=== PATIENT | male | born 1935 | race Caucasian/White ===

== ENCOUNTER 2017-03-16 05:58 | Observation (INO) | payer MEDICARE, BC ==
--- NOTE | ~2017-03-16 | CT71 ---
[facility] A Service [facility] RADIOLOGY TEXT RESULTS PATIENT: JESSIE CORRIGAN LOCATION: [facility] 552- : 37 UNIT #: [id number] AGE: [address]: Bennett Lynch MD SEX: M ORDER DR: [id number] [facility] [address]. [place], [place] [address] [id number] MR#: [id number] Acc #: [id number] NAME: JESSIE CORRIGAN : 1935 SEX: M STUDY DATE/TIME: 03/16/2017 7:36 UNIT: WALTER ROOM: STUDY DESCRIPTION: CT Head Wo Contrast Attending Physician: Meliton Rodrigues M.D. Ordering Physician: Meliton Rodrigues M.D. Primary Care Physician: Bennett Lynch M.D. MEDICAL IMAGING REPORT This report is preliminary unless electronic signature is present EXAM Noncontrast CT head 03/16/2017 HISTORY Woke up with acute mental status changes. Confusion today. Previous history of stroke. COMPARISON Noncontrast CT head 12/16/2013. PROCEDURE This CT examination was performed with one or more of the following radiation dose reduction techniques: automatic exposure control, adjustment of mA and/or kV according to patient size, and iterative reconstruction. FINDINGS Study is degraded by patient motion. Allowing for this limitation, no gross acute intracranial hemorrhage, mass lesion, mass effect or midline shift is seen. Focal encephalomalacic change is demonstrated within the right frontal lobe, consistent with site of remote vascular insult. Ventricular configuration appears within normal limits. Major paranasal sinuses and mastoid air cells are clear. No displaced calvarial fracture is identified. IMPRESSION 1. No acute intracranial findings. 2. Focal right frontal encephalomalacia consistent with remote vascular insult. Dictated by... Tahmina Larry M.D. [facility] A Service [facility] RADIOLOGY TEXT RESULTS PATIENT: JESSIE CORRIGAN LOCATION: [facility] 552- : 37 UNIT #: [id number] AGE: [address]: Bennett Lynch MD SEX: M ORDER DR: THIS IS AN ELECTRONICALLY VERIFIED REPORT Tahmina Larry M.D. at 03/19/2017 8:31 AM NOAH/bridgett TD: 03/16/2017 09:03 JOB #: [id number] MEDICAL IMAGING REPORT Page 1 of 1 COPY
--- NOTE | ~2017-03-16 | DS ---
Unit #: [id number] #: [id number] Patient: JESSIE CORRIGAN [id number] [address] [place], [place] [address] [id number] I MR#: [id number] NAME: JESSIE CORRIGAN. ROOM: 55 Age: 81 Sex: M Admission Date: 03/16/2017 : 1935 Discharge Date: 03/18/2017 Attending Physician: Bennett Lynch M.D. Primary Care Physician: Bennett Lynch M.D. DISCHARGE SUMMARY PRINCIPAL DISCHARGE DIAGNOSES 1. Acute mental status changes secondary to hypoglycemia. 2. Type 2 diabetes mellitus. 3. 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 4. Coronary artery disease. 5. Peripheral arterial disease. 6. Hypertension. 7. Hyperlipidemia. 8. Benign prostatic hypertrophy. PROCEDURES None. CONSULTANTS Dr. Marroquin from neurology. REASON FOR HOSPITALIZATION The patient is a 81-year-old white male with history of coronary artery disease, peripheral arterial disease, hypertension, hyperlipidemia, type 2 diabetes mellitus, BPH, old CVA. Presented on the morning of admission with acute mental status changes, agitated, slurred speech, confusion, disorientation. He had apparently woken up earlier during the night in a drenching sweat at about 4 a.m. He checked his sugar at that time and stated it was in the 90s, so he went back to sleep, but when he awoke a few hours later, he was confused and agitated. EMS was summoned. His blood sugar apparently at first was okay but then soon dropped in the ER to 35, treated with an amp of D50. His workup there was, otherwise, essentially unremarkable. CT scan was performed and showed no acute disease but an old right frontal encephalomalacia consistent with prior infarct, and the patient was admitted. HOSPITAL COURSE The patient was admitted to a telemetry bed. He was seen in neurology consultation. Additional labs were sent. Accu-Cheks were obtained. He was placed on IV fluids with dextrose. Diabetic medications were held. His ammonia level was 38. PT and PTT were within normal limits. CBC showed a white count of 13.2 but was otherwise normal. Urinalysis had 100 glucose and 1+ blood but was otherwise negative. Urine drug screen was negative. Tylenol/acetaminophen and alcohol were negative. MRI of the brain showed some motion artifact. There was some nonspecific small vessel disease. Two lesions were noted within the left parotid gland, one measuring 9 mm and one more consistent with a cyst. An EEG was performed. There is no official report, but the handwritten report by neurologist states tremor and motion artifact. The patient's blood sugars have been over 151 for the Unit #: [id number] #: [id number] Patient: JESSIE CORRIGAN past 24 hours, but he is still on dextrose. This is being discontinued. He will have breakfast and lunch, and if his blood sugar stays okay, he will be discharged home. His room air O2 sat is currently 98%. Other vital signs are within normal range. DISCHARGE INSTRUCTIONS He is to have an office visit in the next week. He is to check his blood sugars a.c. and h.s. and call if less than 70 or over 250. He is to call his blood sugars to the office in 48 hours. DISCHARGE DIET He is on a healthy heart, constant carb diet. CURRENT MEDS 1. Flomax 0.4 mg daily. 2. Magnesium oxide 400 mg b.i.d. 3. Gabapentin 300 mg t.i.d. 4. Meclizine 25 mg p.r.n. 5. Lipitor 80 mg daily. 6. Zetia 10 mg daily. 7. Coreg 6.25 mg b.i.d. 8. Lasix 20 mg b.i.d. 9. Lisinopril 20 mg daily. 10. Plavix 75 mg daily. 11. His glipizide will be discontinued. 12. NovoLog is discontinued. 13. Toujeo is decreased from 120 units subcu q.h.s. to 100 units. 14. His Januvia is being discontinued temporarily, as well. Dictated by... Bennett Lynch M.D. BENEDICTO/yasir TD: 03/19/2017 08:12 JOB #: [id number] DISCHARGE SUMMARY Page 1 of 1 X Bennett Lynch MD X DISCHARGE SUMMARY
--- NOTE | ~2017-03-16 | HP ---
Unit #: [id number] #: [id number] Patient: JESSIE CORRIGAN [id number] [address] [place], [place] [address] [id number] E MR#: [id number] NAME: JESSIE CORRIGAN ROOM: Age: 81 Sex: M Admission Date: 03/16/2017 : 1935 Attending Physician: Meliton Rodrigues M.D. Primary Care Physician: Bennett Lynch M.D. HISTORY AND PHYSICAL HISTORY OF PRESENT ILLNESS The patient is a 81-year-old white male with history of coronary artery disease, peripheral arterial disease, hypertension, hyperlipidemia, type 2 diabetes mellitus, BPH, old CVA, occasional alcohol use, presents this morning with acute mental status changes, agitated, slurred speech, confusion, disorientation. Apparently, he awoke early this morning about 4 a.m. drenched in sweat. He knows to check his sugar if this happens. He checked it and states that it was in the 90s so he went back to bed but then when he awoke at 7 or 8, he was confused per his , agitated, tried to call his sister, had slurred speech, EMS was summoned. When they arrived, his blood sugar was in the 80s or 90s. Soon after he arrived here in the emergency room, it dropped to 33. He was given an amp of D50. It went up to 119, then fell back to 66, at which time he was fed and currently his last blood sugar is 87 and he is awake, alert, and oriented x3. He has already been seen by Neurology. His workup otherwise is fairly unremarkable but will be stated below. He has had the MRI but we do not have the results yet but he has no focal neurologic symptoms. His and daughter are at the bedside during the history and physical examination. He needs to be admitted overnight for observation for the acute mental status change. PAST MEDICAL HISTORY 1. Hypertension. 2. Type 2 diabetes mellitus. 3. Hyperlipidemia. 4. Smoker. 5. Coronary artery disease. 6. Peripheral arterial disease. 7. BPH. 8. Old CVA. 9. Colonic polyps. PAST SURGICAL HISTORY 1. Hernia repair. 2. Cardiac stents. HOME MEDICATIONS 1. Lasix 20 mg p.o. b.i.d. 2. Magnesium 400 mg p.o. b.i.d. 3. Januvia 100 mg daily. 4. Zetia 10 mg daily. 5. Lipitor 80 mg daily. 6. Toujeo 120 mg h.s. Unit #: [id number] #: [id number] Patient: JESSIE CORRIGAN 7. Coreg 6.25 mg b.i.d. 8. Plavix 75 mg daily. 9. Flomax 0.4 mg daily. 10. Gabapentin 300 mg t.i.d. 11. Glipizide 10 mg b.i.d. 12. Prinivil 20 mg daily. 13. Meclizine 25 mg p.r.n. 14. NovoLog 10 units subcu t.i.d. with meals but apparently he has been taking his last dose at bedtime when he eats a snack. ALLERGIES 1. Ibuprofen. 2. Penicillin. SOCIAL HISTORY Retired. . Occasional alcohol use but not daily. Prior heavy tobacco use but quit a few years ago. FAMILY HISTORY Notable for coronary artery disease. His father of an [place] at age 70. His mother of essentially old age. His younger sister at age 57 of a myocardial infarction with sudden syndrome. PHYSICAL EXAMINATION VITAL SIGNS: Afebrile, pulse 75, respirations 18, blood pressure 148/80, O2 saturation 96% on room air. GENERAL: He is awake, alert, oriented x3. Again, the family was at the bedside during the history and physical examination. He seems to be pretty much at baseline at this point although he was somewhat sleepy, probably from lack of sleep last night. HEENT: Unremarkable except for nasal cannula in place. NECK: Supple without JVD, bruits, adenopathy, or thyromegaly. LUNGS: Clear to auscultation. HEART: Regular rate and rhythm without any murmurs, rubs, or gallops. ABDOMEN: Soft, nondistended, nontender with positive bowel sounds and no hepatosplenomegaly. EXTREMITIES: No clubbing or cyanosis. He has 2+ pitting edema of the left lower extremity. Trace of the right lower extremity which are both chronic and stable for the patient. GENITOURINARY: Deferred. RECTAL: Deferred. NEUROLOGIC: No focal deficits. DIAGNOSTIC STUDIES LABORATORY: Cardiac enzymes are normal x2. CBC normal except for a white count of 13.2 with slight left shift. PT and PTT are within normal limits. Ammonia 38. CMP normal except for potassium of 3.1, glucose 33, BUN 31, creatinine 1.7, GFR 37.5. Acetaminophen less than 10, salicylates less than 4, alcohol less than 5. Urinalysis 100 glucose, 0.2 urobilinogen, 1+ blood, 5-10 crystals, otherwise negative. Urine drug screen is completely negative. IMAGING: CT scan of the head shows an old right frontal encephalomalacia consistent with an old vascular infarct. Chest x-ray shows mild cardiomegaly with some chronic lung disease changes and superimposed mild pulmonary vascular congestion. Unit #: [id number] #: [id number] Patient: JESSIE CORRIGAN MRI of the brain findings just came in and shows the study is limited by patient movement. There is nothing to suggest recent ischemic insult. There is mild white matter disease which is nonspecific probably due to small vessel disease. There are 2 lesions in the left parotid gland measuring up to 9 mm, the more posterior is probably a cyst. The more anterior is nonspecific. Recommended clinical follow up. CARDIOVASCULAR: EKG shows sinus rhythm, first-degree AV block, left bundle branch block which is no change from his previous tracings. IMPRESSION 1. Acute mental status changes likely secondary to hypoglycemia. 2. Hypokalemia. 3. Renal insufficiency. 4. Type 2 diabetes mellitus. 5. Coronary artery disease. 6. Peripheral arterial disease. 7. Old cerebrovascular accident. 8. Left parotid lesions x2. 9. Hyperlipidemia. 10. Benign prostatic hypertrophy. 11. History of colonic polyps. PLAN 1. Hold all diabetic medications. 2. D5 normal saline at 75 mL per hour. 3. Follow potassium-magnesium protocol. 4. Check BNP. 5. Lovenox for DVT prophylaxis. 6. Neurology has already been consulted. 7. Recheck his white count, renal function and potassium in the morning. 8. Further evaluation pending results of the above. Dictated by Bennett Lynch M.D. BENEDICTO/viviana TD: 03/16/2017 18:02 JOB #: [id number] HISTORY AND PHYSICAL Page 1 of 1 X Bennett Lynch MD X HISTORY AND PHYSICAL
--- NOTE | ~2017-03-16 | CR72 ---
[facility] A Service of [facility] RADIOLOGY TEXT RESULTS PATIENT: JESSIE CORRIGAN LOCATION: [facility] : 37 UNIT #: [id number] AGE: [address]: Meliton Rodrigues MD SEX: M ORDER DR: [id number] [facility] [address] [place], [place] [address] [id number] E MR#: [id number] Acc #: [id number] NAME: JESSIE CORRIGAN : 1935 SEX: M STUDY DATE/TIME: 03/16/2017 6:27 UNIT: [facility] ROOM: STUDY DESCRIPTION: CR Chest Single View Portable Attending Physician: Meliton Rodrigues M.D. Ordering Physician: Meliton Rodrigues M.D. Primary Care Physician: Bennett Lynch M.D. MEDICAL IMAGING REPORT This report is preliminary unless electronic signature is present EXAM Chest x-ray portable HISTORY Altered mental status. Short of air. Confused. Weak since tonight. COMMENT 2 frontal views of the chest timed 06:27 03/16/2017 submitted for review. Comparison 12/10/2011. There is mild cardiac silhouette enlargement, some ectasia of the thoracic aorta and vascular calcification at the knob. Configuration is not changed. There is mild vascular congestion and interstitial edema which is increased on comparison to the previous study. There is evidence for old granulomatous disease. There is no pneumothorax. No pleural effusion is suspected. Likely underlying chronic lung disease. IMPRESSION Redemonstration of mild cardiac silhouette enlargement. There is likely underlying chronic lung disease but concern for superimposed mild volume overload with increase in vascular and interstitial markings when comparison is made to 2011. There is however no pleural effusion. Clinical correlation and follow up is suggested. No pneumothorax. Dictated by... Nia Kwon M.D. THIS IS AN ELECTRONICALLY VERIFIED REPORT Nia Kwon M.D. at 03/16/2017 2:51 PM [facility] A Service of [facility] RADIOLOGY TEXT RESULTS PATIENT: JESSIE CORRIGAN LOCATION: [facility] : 37 UNIT #: [id number] AGE: [address]: Meliton Rodrigues MD SEX: M ORDER DR: OLGA/bridgett TD: 03/16/2017 08:11 JOB #: [id number] MEDICAL IMAGING REPORT Page 1 of 1 COPY
--- NOTE | ~2017-03-16 | CO ---
Unit #: [id number] #: [id number] Patient: JESSIE CORRIGAN [id number] [facility] [address] [place], [place] [address] [id number] I MR#: [id number] NAME: JESSIE CORRIGAN. ROOM: 552 Age: 81 Sex: M Admission Date: 03/16/2017 : 1935 Attending Physician: Bennett Lynch M.D. Primary Care Physician: Bennett Lynch M.D. Consultation Date: 03/16/2017 CONSULTATION REPORT PRIMARY CARE PHYSICIAN Bennett Lynch M.D. REASON FOR CONSULTATION Altered mental status. PATIENT IDENTIFICATION A 81-year-old right-handed male, evaluated in the ER room 12 at [facility]. SOURCE OF INFORMATION Obtained from the patient, the patient's family as well as the medical record. HISTORY OF PRESENT ILLNESS This is a very pleasant 81-year-old right-handed male with past medical history of CAD, hyperlipidemia, diabetes mellitus type 2, previous stroke, who presents to [facility] with altered mental status that now appears resolved. The patient lives with his and states that he felt okay yesterday although family states that he has been having some headaches and episodes of feeling off balance. However, he has his dinner as usual last night. He states around midnight he took his Toujeo, which is a diabetic medication he states he was recently started on. He states when he woke up this morning, he felt as though his thoughts were disorganized. He states that he had trouble getting his words out. His reports that his speech was slurred and he also states that he felt unsteady. He was brought to the ER where he was noted to be fidgety and agitated. His glucose then was reported at 1:30. He was admitted for further workup and evaluation. His head CT was negative for any acute changes. It does show a prior remote stroke. Etiology otherwise is unclear. With the patient's lab work being essentially unrevealing for source although his blood glucose upon repeated evaluation were low and about an hour after his arrival, his blood glucose was 35. He did receive dextrose. He has been started on D5 fluids. Repeat glucose has been 33 and his more recent glucose was 66. He is now awake however and eating and is receiving fluids, so concern is it seems though he may have been having mental status changes prior to this. Regardless, he is now awake. He is fully alert and oriented and does tell me that he knew something was wrong this morning. He actually told his to take him to the hospital. He denies any focal numbness or weakness, any falls. He states that he felt unsteady and off balance, but did not have any focal weakness or paresthesia. He denies chest pain, shortness of air, palpitations, nausea, vomiting, or abdominal pain. His main concern was that "he just did not feel right," having trouble getting his words out, Unit #: [id number] #: [id number] Patient: JESSIE CORRIGAN had slurred speech, and trouble organizing his thoughts. He is being admitted for further workup and evaluation. No report of any exacerbating or alleviating factors otherwise and again he is not his baseline. His urinalysis is negative for bacteria. Culture is not indicated. His chest x-ray per Radiology report shows likely underlying chronic lung disease with concern for superimposed mild volume overload with increase in vascular interstitial markings in comparison to 2012, however, no pleural effusion. No pneumothorax. His ammonia level was only mildly elevated at 38. He does have some mild leukocytosis with a white count of 13.2, otherwise hemoglobin, hematocrit, and platelet counts are unremarkable. Troponin on arrival was less than 0.05. PT 10.7, INR 1.0, PTT 23.5. His acetaminophen level is less than 10. Salicylate level less than 4 and alcohol level less than 5. His urine drug screen is unremarkable. Repeat troponin less than 0.05 and current glucose is 66 and he was given some juice and food to eat. Repeat glucose check is pending. PAST MEDICAL HISTORY 1. History of remote stroke in the 1980s per the patient. CT scan shows focal right frontal encephalomalacia consistent with remote vascular insult. The patient states that this happened whenever he had a heart surgery done in the 80s or s. He states he had a "collapsed blood vessel.". 2. CAD. 3. History of stent in 1995. 4. History of carotid stenosis from an H and P done in 2011 by Cardiology. Apparently, the patient was reported to have a carotid endarterectomy. 5. Diabetes mellitus type 2. 6. Hypertension. 7. Hyperlipidemia. 8. Arthritis. 9. History of tobacco use. He denies a history of epilepsy or seizures. ALLERGIES Penicillin, ibuprofen. FAMILY HISTORY Essentially noncontributory given his stated age of 81. SOCIAL HISTORY He has a history of tobacco use. Denies alcohol abuse or illicit drug use. REVIEW OF SYSTEMS 14-point review of systems was done. Pertinent positives are as discussed above, otherwise negative. PHYSICAL EXAMINATION VITAL SIGNS: Temperature 97.5, he has been afebrile; pulse 62; respirations 22; blood pressure 132/89, blood pressure in the ER on arrival was 148/80; oxygen saturation 97%. Height 6 feet 0 inches, weight 205 pounds. His weight is actually documented from November. I do not have a current weight. In November of this year, he was documented as having weight of 205 pounds. NEUROLOGIC: The patient is currently awake. He is alert. He is fully oriented to person, place, and time. He knows why he is here and can tell me that he knew something was wrong this morning. He recognizes family at the bedside. He can tell me the month, the day of the week, and the year. He can tell me his age, but he could tell me his date. His speech Unit #: [id number] #: [id number] Patient: JESSIE CORRIGAN is clear and intact. He has no aphasia, dysarthria, or apraxia. Cranial nerve exam demonstrates full caban of vision. Eyes are conjugate without ptosis or nystagmus. Extraocular movements are intact. Sensation of face and scalp is intact. Strength of muscles of facial expression is intact. Hearing is intact to conversation. Tongue is midline. Uvula is midline. Palate elevation is normal. Head turning and shoulder shrug are unremarkable. Neck is supple. Motor exam, he demonstrates normal bulk. Tone is very questionable. He has a hard time relaxing for me to truly assess if he has any abnormal tone bilaterally or unilaterally. No unilateral or focal differences in tone noted. Strength is equal 5/5 in all extremities. Sensory exam is without extinction. Gait and Romberg deferred. Reflexes, unable to elicit. Toes are equivocal. Coordination is unremarkable. He does appear to have little bit of a tremor and seems to be bilateral worse with movement. DIAGNOSTIC STUDIES IMAGING STUDIES: As discussed above. Again, he had a CT scan of the head without contrast that is negative for any acute intracranial findings and also noted a focal right frontal encephalomalacia consistent with remote vascular insult. LABORATORY RESULTS: As discussed above. IMPRESSION 1. Altered mental status, resolved, questionable metabolic though we need to rule out a central etiology as the patient had altered speech, was off balanced, change in mentation with altered comprehension, slurred speech on arrival, and normal glucose though. Since he has been here, he has certainly been profoundly hypoglycemic, which could be contributing to the problem. However I am uncertain if we can blame entirely on that. He had no obvious other focal deficits. We will request MRI of the brain, which has already been ordered and also an EEG. He denies any prior history of cancer. 2. Hypoglycemia, stable. 3. Coronary artery disease. 4. Hyperlipidemia. 5. Diabetes mellitus type 2. 6. Other medical issues as discussed above. PLAN MRI of the brain is pending. We will request an EEG and further recommendations to be made pending workup and further clinical course. He is maintained on aspirin and Plavix. Recommend continuing his home medications. Case was discussed with Dr. Marroquin and he agrees to the above. We will follow along with you. Dictated by... Linda Isidro A.P.R.N. for Clary Francis/jose TD: 03/17/2017 05:29 JOB #: [id number] Unit #: [id number] #: [id number] Patient: JESSIE CORRIGAN CONSULTATION REPORT Page 1 of 1 X Linda Isidro APRN X CONSULTATION REPORT
--- NOTE | ~2017-03-16 | EKG ---
PATIENT: JESSIE CORRIGAN UNIT #: [id number] Ventricular Rate: 69 BPM Atrial Rate: 69 BPM P-R Interval: 240 ms QRS Duration: 178 ms Q-T Interval: 478 ms QTC Calculation(Bezet): 512 ms Calculated R Quinn: -11 degrees Calculated T Quinn: 163 degrees Diagnosis Line: Sinus rhythm with 1st degree A-V block Diagnosis Line: Left bundle branch block Diagnosis Line: Abnormal ECG Diagnosis Line: When compared with ECG of 11-DEC-2011 06:42, Diagnosis Line: No significant change was found Diagnosis Line: Confirmed by RAYMON ROMAN MD ([id number]) on Diagnosis Line: 03/17/2017 1:49:45 PM INTERPRETING MD: JAMIL
--- NOTE | ~2017-03-16 | MR18 ---
[facility] A Service of [facility] & [facility] RADIOLOGY TEXT RESULTS PATIENT: JESSIE CORRIGAN LOCATION: [facility] [id number] : 37 UNIT #: [id number] AGE: [address]: Bennett Lynch MD SEX: M ORDER DR: [id number] [facility] [address] [place], [place] [address] [id number] MR#: [id number] Acc #: [id number] NAME: JESSIE CORRIGAN : 1935 SEX: M STUDY DATE/TIME: 03/16/2017 15:02 UNIT: [facility] ROOM: STUDY DESCRIPTION: MR Brain Wo Contrast Attending Physician: Meliton Rodrigues M.D. Ordering Physician: Bennett Lynch M.D. Primary Care Physician: Bennett Lynch M.D. MRI CENTER REPORT This report is preliminary unless electronic signature is present. EXAM MRI brain without. HISTORY Neurologic definite. Patient woke up confused 03/16/2017, fidgeting and talkative. Patient also claustrophobic. History of diabetes and alcohol use and prior stroke/TIA. No history of cancer. TECHNIQUE MRI of the brain was performed without contrast using routine 1.5T imaging technique. COMPARISON STUDIES There is a head CT from earlier today for comparison. COMMENT Study is limited by patient motion artifact. This is despite use of motion-limiting sequences. There is no evidence for a recent ischemic insult on the diffusion series. There is no MRI evidence for intracranial hemorrhage. No Chiari I malformation. Midline structures are grossly unremarkable. The intracranial flow voids are maintained. The mastoid air cells are clear. The visualized paranasal sinuses are essentially clear. The patient has had cataract surgery bilaterally. There are 2 lesions partly seen in the superficial portion of the left parotid gland anteriorly. The first is higher in signal intensity on T2 weighted imaging about 9 mm in diameter and the second is lower in signal intensity on T2-weighted imaging about 8 mm in diameter. They are nonspecific. More posterior of the two with high T2 significant could be a cyst but the more anterior of the two is more nonspecific in signal characteristics and I do not have any remote imaging that evaluates for stability. Consider followup characterization [facility] A Service of [facility] & [facility] RADIOLOGY TEXT RESULTS PATIENT: JESSIE CORRIGAN LOCATION: [facility] [id number] : 37 UNIT #: [id number] AGE: [address]: Bennett Lynch MD SEX: M ORDER DR: with directed ultrasound. It might be helpful to determine the architecture. If more advanced imaging is desired, an MRI of the neck soft tissue with and without contrast would be suggested. There is mild white matter disease most confluent in the deep to periventricular white matter. There is one more focal lesion seen in the right frontal deep white matter about 1 cm in diameter. This is probably all due to small vessel disease in light of risk factors. There is no intracranial mass effect. IMPRESSION 1. Study is limited by patient motion. Allowing for this, there is nothing to suggest a recent ischemic insult on the diffusion series. 2. There is mild white matter disease which is nonspecific, probably due to small vessel disease. 3. There are 2 lesions in the superficial portion of the left parotid gland measuring up to about 9 mm in largest dimension. The more posterior of the 2 is probably a cyst. The more anterior of the 2 is more nonspecific. It could simply be an enlarged lymph node within the gland. Consider correlation with followup parotid ultrasound to evaluate internal architecture. If more advanced imaging is indicated, an attempt could be made at the MRI of the neck soft tissue with and without contrast, though this would likely be illuminated at this time due to patient's limited ability to cooperate with MRI. Clinical followup suggested, as well. STAT * RESULT Dictated by... Nia Kown M.D. THIS IS AN ELECTRONICALLY VERIFIED REPORT Nia Kwon M.D. at 03/19/2017 7:35 AM OLGA/benigno TD: 03/16/2017 15:59 JOB #: [id number] MRI CENTER REPORT Page 1 of 1 COPY
--- NOTE | ~2017-03-16 | EE ---
Unit #: [id number] #: [id number] Patient: JESSIE CORRIGAN [id number] [facility]. [address] [place], [place] [address] [id number] MR#: [id number] NAME: JESSIE CORRIGAN. : 1935 SEX: M STUDY DATE/TIME: 03/16/2017 UNIT: [id number] ROOM: 552 STUDY DESCRIPTION: EEG Attending Physician: Bennett Lynch M.D. Primary Care Physician: Bennett Lynch M.D. NEURODIAGNOSTICS REPORT EXAM EEG. REASON FOR THE STUDY The patient is fidgety, talkative and confused. EEG DESCRIPTION This is an inpatient, digital recorded multi montage adult EEG with leads placed according to the International 10-20 system. Hyperventilation and photic stimulation were not done. This EEG shows 10 to 11 Hz background but then there was significant motion artifact throughout the recording. Nothing suggesting seizure. Nothing suggesting interictal discharges or clinical events. Hyperventilation and photic stimulation were not done. There was also possible some artifact of the tremor. IMPRESSION Abnormal EEG showing significant tremor, otherwise, low amplitude and nonspecific. Nothing suggesting seizure or status. No clinical events were seen. This is very nonspecific. Nothing suggesting interictal discharges but an EEG like this does not rule out epilepsy. Clinical correlation is recommended. Dictated by... Clary Francis/fifi TD: 03/18/2017 12:30 JOB #: [id number] Unit #: [id number] #: [id number] Patient: JESSIE CORRIGAN NEURODIAGNOSTICS REPORT Page 1 of 1 X Shiv Marroquin MD NEURODIAGNOSTICS REPORT
[~2017-03-16 05:58] MED LIST: ASPIRIN PO; ASPIRIN81 MG PO; BAYER ASA PO; DARVOCET-N 1001 TAB PO; FLOMAX0.4 M1 PO; GLUCOPHAGE500 MG PO; GLUCOTROL PO; GLUCOTROL10 MG PO; JANUVIA PO; K-DUR20 ME1 PO; LASIX20 MG PO; LIPITOR PO; LISINOPRIL PO; LISINOPRIL10 MG PO; LOPRESSOR PO; MAG-OXIDE400 MG PO; METFORMIN PO; NEURONTIN300 MG PO; NIASPAN PO; NIASPAN1000 MG PO; PLAVIX PO; TYLOX 5/500 CAP1 CAP PO
[2017-03-16 06:51] LABS: POC - CKMB 3.3 ng/mL (0.0-7.9); POC - TROPONIN <0.05 ng/mL (<=0.05)
[2017-03-16 07:09] LABS: BASOPHIL# 0.1 X10e3 (0-0.3); BASOPHIL% 0.5 % (0-2.5); EOSINOPHIL# 0.3 X10e3 (0-0.7); EOSINOPHIL% 2.3 % (0.0-7.0); HEMATOCRIT 41.1 % (38.0-50.0); HEMOGLOBIN 13.3 gm/dL (13.0-16.0); LYMPHOCYTE# 2.1 X10e3 (1.0-3.5); LYMPHOCYTE% 15.6 % (17.0-45.0); MEAN CELL VOLUME 89.2 FL (83-96); MEAN CORPUSCULAR HGB CONC 32.5 g/dL (30-36); MEAN PLATELET VOLUME 9.7 FL (6.5-11.5); MONOCYTE# 1.3 X10e3 (0-1.0); MONOCYTE% 9.5 % (3.0-12.0); NEUTROPHIL# 9.5 X10e3 (1.5-7.1); NEUTROPHIL% 72.1 % (40-75); PLATELET COUNT 207 X10e3 (140-420); RED BLOOD COUNT 4.61 X10e (3.90-5.60); RED CELL DISTRIBUTION WIDTH 14.6 % (11.0-15.5); WHITE BLOOD COUNT 13.2 X10e3 (4.0-10.5)
[2017-03-16 07:13] LABS: DIFF IND NO
[2017-03-16 07:23] LABS: PARTIAL THROMBOPLASTIN TIME 23.5 SECONDS (23.5-31.3); PROTHROMBIN TIME (PATIENT) 10.7 SECONDS (9.6-11.5)
[2017-03-16 07:42] LABS: ALBUMIN SERUM 3.7 g/dL (3.5-5.0); ALKALINE PHOSPHATASE 83 U/L (32-92); ALT (SGPT) 19 U/L (10-40); AST (SGOT) 25 U/L (10-42); BILIRUBIN, DIRECT 0.1 mg/dL (0.0-0.2); BILIRUBIN,INDIRECT 0.7 mg/dL (0.0-0.9); BILIRUBIN,TOTAL 0.8 mg/dL (0.2-2.0); BLOOD UREA NITROGEN 31 mg/dL (9-23); BUN/CREATININE RATIO 18.23; CARBON DIOXIDE 23 mmol/L (22-31); CHLORIDE 105 mmol/L (100-111); CREATININE SERUM 1.7 mg/dL (0.6-1.4); GLOM FILT RATE Estimated 37.5 mL/min (>60); POTASSIUM 3.1 mmol/L (3.5-5.1); PROTEIN TOTAL SERUM 7.8 g/dL (6.0-8.3); SALICYLATE <4.0 mg/dL; SODIUM 142 mmol/L (135-145)
[2017-03-16 07:43] LABS: ACETAMINOPHEN <10 ug/mL; ALCOHOL BLOOD <5 mg/dL (0); GLUCOSE FASTING 33 mg/dL (70-110)
[2017-03-16 08:28] LABS: URINE SOURCE CLEAN CATCH
[2017-03-16 08:51] LABS: URINE APPEARANCE CLEAR; URINE BILIRUBIN NEG (NEG); URINE BLOOD 1+ (NEG); URINE COLOR YELLOW; URINE GLUCOSE 100 MG/DL (NEG); URINE KETONE NEG (NEG); URINE LEUKOCYTE ESTERASE NEG (NEG); URINE NITRATE NEG (NEG); URINE PROTEIN NEG (NEG); URINE SPECIFIC GRAVITY 1.018 (1.003-1.035); URINE UROBILINOGEN 0.2 MG/DL (NEG)
[2017-03-16 08:52] LABS: URBCS1 AUWI 0-2 /[HPF] (0-2); URINE BACTERIA AUWI NEG (NEGATIVE); URINE SQUAMOUS EPITHELIAL CELL NONE SEEN /[HPF]; UWBCS1 AUWI 0-2 (0-5)
[2017-03-16 08:53] LABS: CULTURE INDICATED? NO
[2017-03-16 09:01] LABS: POC - CKMB 2.6 ng/mL (0.0-7.9); POC - TROPONIN <0.05 ng/mL (<=0.05)
[2017-03-16 09:12] LABS: AMPHETAMINE NEG (NEG); BARBITURATES NEG (NEG); BENZODIAZEPINES NEG (NEG); COCAINE NEG (NEG); MARIJUANA NEG (NEG); OPIATES NEG (NEG); TRICYCLIC ANTIDEPRESSANTS NEG (NEG); U METHADONE NEG (NEG)
[2017-03-16] MEDS ORDERED: PATIENT'S PHARMACY (10:49)
[2017-03-16] MEDS ORDERED: LASIX20 MG PO (11:02)
[2017-03-16] MEDS ORDERED: EZETIMIBE10 MG PO (11:03)
[2017-03-16] MEDS ORDERED: JANUVIA PO (11:03)
[2017-03-16] MEDS ORDERED: MAGNESIUM400 MG PO (11:03)
[2017-03-16] MEDS ORDERED: LIPITOR80 MG PO (11:04)
[2017-03-16] MEDS ORDERED: TOUJEO SOL300 UNIT/1 SUBQ (11:04)
[2017-03-16] MEDS ORDERED: CLOPIDOGREL75 MG PO (11:05)
[2017-03-16] MEDS ORDERED: COREG6.25 MG PO (11:05)
[2017-03-16] MEDS ORDERED: FLOMAX0.4 M1 PO (11:06)
[2017-03-16] MEDS ORDERED: GLIPIZIDE10 MG PO (11:06)
[2017-03-16] MEDS ORDERED: PRINIVIL20 M1 PO (11:06)
[2017-03-16] MEDS ORDERED: GABAPENTIN300 M2 PO (11:06)
[2017-03-16] MEDS ORDERED: ZETIA PO (11:31)
[2017-03-16] MEDS ORDERED: MOTION RELIEF25 MG PO (11:31)
[2017-03-16] MEDS ORDERED: NOVOLOG FL100 UNIT/1 SUBQ (11:32)
[2017-03-17 05:14] LABS: HEMATOCRIT 40.5 % (38.0-50.0); HEMOGLOBIN 13.2 gm/dL (13.0-16.0); MEAN CORPUSCULAR HEMOGLOBIN 29.2 PG (28-34); MEAN CORPUSCULAR HGB CONC 32.5 g/dL (30-36); MEAN PLATELET VOLUME 8.9 FL (6.5-11.5); RED BLOOD COUNT 4.5 X10e (3.90-5.60); RED CELL DISTRIBUTION WIDTH 14.8 % (11.0-15.5); WHITE BLOOD COUNT 9.9 X10e3 (4.0-10.5)
[2017-03-17 06:01] LABS: BUN/CREATININE RATIO 15.45; CALCIUM SERUM 8.4 mg/dL (8.4-10.2); CREATININE SERUM 1.1 mg/dL (0.6-1.4); GLOM FILT RATE Estimated 63.5 mL/min (>60); POTASSIUM 3.9 mmol/L (3.5-5.1)
[2017-03-18 06:36] LABS: POTASSIUM 3.7 mmol/L (3.5-5.1)
[2017-03-18] MEDS ORDERED: [UNRECOGNIZED DRUG - OTHER] PO (09:52)
== END 2017-03-18 15:52 | disposition home or self-care (01) ==
LOC: CED 05:58 → CEDOF 09:20 → CED 18:49 → C5B 19:18 → CEDOF 19:18 → C5B 03-18 15:52
PROVIDERS: Emergency Medicine; Internal Medicine
DX: E11.649 Type 2 diabetes mellitus with hypoglycemia without coma (principal); Z79.4 Long term (current) use of insulin; R41.82 Altered mental status, unspecified; Z86.73 Personal history of transient ischemic attack (TIA), and cerebral infarction without residual deficits; I25.10 Atherosclerotic heart disease of native coronary artery without angina pectoris; Z79.84 Long term (current) use of oral hypoglycemic drugs; I73.9 Peripheral vascular disease, unspecified; I10 Essential (primary) hypertension; E78.5 Hyperlipidemia, unspecified; N40.0 Benign prostatic hyperplasia without lower urinary tract symptoms; Z79.02 Long term (current) use of antithrombotics/antiplatelets; Z88.0 Allergy status to penicillin; Z88.6 Allergy status to analgesic agent; Z82.49 Family history of ischemic heart disease and other diseases of the circulatory system; Z87.891 Personal history of nicotine dependence
CPT/HCPCS: 36415; 51702; 70450; 70551; 71010; 80048; 80076; 80307; 81003; 82140; 82553; 82947; 83735; 83880; 84132; 84484; 85025; 85027; 85610; 85730; 93005; 95816; 96365; 96366; 96372; 96374; 96375; 99291; G0378; G0480; J1650; J2060; J2405; J3475

== ENCOUNTER 2017-03-24 07:08 | Emergency (ER) | payer MEDICARE, BC ==
[~2017-03-24 07:08] MED LIST changes: +CLOPIDOGREL75 MG PO; +COREG6.25 MG PO; +EZETIMIBE10 MG PO; +GABAPENTIN300 M2 PO; +GLIPIZIDE10 MG PO; +LIPITOR80 MG PO; +MAGNESIUM400 MG PO; +MOTION RELIEF25 MG PO; +NOVOLOG FL100 UNIT/1 SUBQ; +PATIENT'S PHARMACY; +PRINIVIL20 M1 PO; +TOUJEO SOL300 UNIT/1 SUBQ; +ZETIA PO; +[UNRECOGNIZED DRUG - OTHER] PO
[2017-03-24] MEDS ORDERED: CLOPIDOGREL75 MG PO (08:30)
[2017-03-24] MEDS ORDERED: COREG6.25 MG PO (08:30)
[2017-03-24] MEDS ORDERED: LIPITOR80 MG PO (08:30)
[2017-03-24] MEDS ORDERED: ASPIRIN81 MG PO (08:31)
[2017-03-24] MEDS ORDERED: MAGNESIUM400 MG PO (08:31)
[2017-03-24] MEDS ORDERED: LISINOPRIL20 MG PO (08:31)
[2017-03-24] MEDS ORDERED: NEURONTIN300 MG PO (08:31)
[2017-03-24] MEDS ORDERED: JANUVIA PO (08:32)
[2017-03-24] MEDS ORDERED: LASIX20 MG PO (08:32)
[2017-03-24] MEDS ORDERED: FLOMAX0.4 M1 PO (08:32)
[2017-03-24] MEDS ORDERED: ZETIA PO (08:33)
[2017-03-24] MEDS ORDERED: NOVOLOG100 U/ML SUBQ (08:35)
[2017-03-24 08:36] LABS: BASOPHIL# 0.1 X10e3 (0-0.3); BASOPHIL% 0.7 % (0-2.5); EOSINOPHIL# 0.1 X10e3 (0-0.7); EOSINOPHIL% 1.5 % (0.0-7.0); HEMATOCRIT 40.9 % (38.0-50.0); HEMOGLOBIN 13.3 gm/dL (13.0-16.0); LYMPHOCYTE# 1.3 X10e3 (1.0-3.5); LYMPHOCYTE% 14.8 % (17.0-45.0); MEAN CELL VOLUME 90.2 FL (83-96); MEAN CORPUSCULAR HEMOGLOBIN 29.4 PG (28-34); MEAN CORPUSCULAR HGB CONC 32.5 g/dL (30-36); MEAN PLATELET VOLUME 9.2 FL (6.5-11.5); MONOCYTE# 0.7 X10e3 (0-1.0); MONOCYTE% 7.8 % (3.0-12.0); NEUTROPHIL# 6.4 X10e3 (1.5-7.1); NEUTROPHIL% 75.2 % (40-75); PLATELET COUNT 191 X10e3 (140-420); RED BLOOD COUNT 4.54 X10e (3.90-5.60); RED CELL DISTRIBUTION WIDTH 14.9 % (11.0-15.5); WHITE BLOOD COUNT 8.5 X10e3 (4.0-10.5)
[2017-03-24] MEDS ORDERED: TOUJEO SOL300 UNIT/1 SUBQ (08:36)
[2017-03-24 08:39] LABS: DIFF IND NO
[2017-03-24 09:07] LABS: BUN/CREATININE RATIO 23.57; CREATININE SERUM 1.4 mg/dL (0.6-1.4); GLOM FILT RATE Estimated 47.5 mL/min (>60); POTASSIUM 4.6 mmol/L (3.5-5.1)
== END 2017-03-24 11:10 | disposition home or self-care (01) ==
LOC: CED 07:08
PROVIDERS: Nurse Practitioner
DX: E11.649 Type 2 diabetes mellitus with hypoglycemia without coma (principal); E78.5 Hyperlipidemia, unspecified; I10 Essential (primary) hypertension; Z87.891 Personal history of nicotine dependence; Z88.0 Allergy status to penicillin; Z88.8 Allergy status to other drugs, medicaments and biological substances; Z79.82 Long term (current) use of aspirin; Z79.4 Long term (current) use of insulin; Z79.899 Other long term (current) drug therapy
CPT/HCPCS: 36415; 80048; 82947; 83735; 85025; 96360; 99284